=== PATIENT | male | born 1970 | race African-American/Black ===

== ENCOUNTER 2016-10-27 18:43 | Emergency (ER) | payer OTHER ==
[~2016-10-27] VITALS: Ht 177.8 cm; Wt 104.3 kg
[2016-10-27 19:25] VITALS: BP 167/102
== END 2016-10-27 21:04 | disposition home or self-care (01) ==
LOC: ER 18:45
DX: M54.5 Low back pain (principal); I10 Essential (primary) hypertension; J45.909 Unspecified asthma, uncomplicated; K21.9 Gastro-esophageal reflux disease without esophagitis; Z98.890 Other specified postprocedural states
CPT/HCPCS: 99281; A4606; Z7610; Z7502

== ENCOUNTER 2016-11-18 05:01 | Emergency (ER) | payer OTHER | END 2016-11-18 07:10 | disposition left against medical advice (07) | LOC: ER 05:03 | DX: Z53.21 Procedure and treatment not carried out due to patient leaving prior to being seen by health care provider (principal) ==

== ENCOUNTER 2017-09-12 10:12 | Emergency (ER) | payer OTHER ==
[~2017-09-12] VITALS: Ht 180.3 cm; Wt 101.6 kg
[2017-09-12 10:24] VITALS: BP 158/101
[2017-09-12] MEDS ORDERED: predniSONE 20 MG TABLET ONE (12:04)
[2017-09-12] MEDS: predniSONE 20 MG TABLET PO ONE (12:05)
[2017-09-12] MEDS ORDERED: ALBUTEROL FS 2.5 MG/3 ML VIAL.NEB ONE (12:15)
[2017-09-12] MEDS ORDERED: IPRATROPIUM NEB FS 0.5 MG/2.5 ML AMPUL.NEB ONE (12:15)
[2017-09-12] MEDS: IPRATROPIUM NEB FS 0.5 MG/2.5 ML AMPUL.NEB NEB ONE (12:21)
[2017-09-12] MEDS: ALBUTEROL FS 2.5 MG/0.5 ML VIAL.NEB NEB ONE (12:21)
== END 2017-09-12 13:44 | disposition home or self-care (01) ==
LOC: ER 10:17
DX: J40 Bronchitis, not specified as acute or chronic (principal); I10 Essential (primary) hypertension; J45.909 Unspecified asthma, uncomplicated; K21.9 Gastro-esophageal reflux disease without esophagitis
CPT/HCPCS: 71045-TC; 87400; A4606; Z7610

== ENCOUNTER 2018-10-23 14:53 | Emergency (ER) | payer OTHER ==
[~2018-10-23] VITALS: Ht 177.8 cm; Wt 102.1 kg
[2018-10-23 15:01] VITALS: BP 156/93
[2018-10-23] MEDS ORDERED: KETOROLAC TROMETHAMINE 15 MG/ML VIAL ONE (15:16)
[2018-10-23] MEDS ORDERED: KETOROLAC TROMETHAMINE INJ 60 MG/2 ML VIAL IM ONE (15:30)
== END 2018-10-23 16:28 | disposition home or self-care (01) ==
LOC: ER 14:57
DX: S16.1XXA Strain of muscle, fascia and tendon at neck level, initial encounter (principal); M54.6 Pain in thoracic spine; R51 Headache; I10 Essential (primary) hypertension; J45.909 Unspecified asthma, uncomplicated; K21.9 Gastro-esophageal reflux disease without esophagitis; Z98.890 Other specified postprocedural states; V43.52XA Car driver injured in collision with other type car in traffic accident, initial encounter; Y93.89 Activity, other specified; Y92.413 State road as the place of occurrence of the external cause; Y99.8 Other external cause status
CPT/HCPCS: 71045; 72125; 96372; 99284; A4606; J1885